=== PATIENT | female | born 1985 | race Two or more races ===

== ENCOUNTER 2020-07-16 12:14 | Outpatient (CLI) | payer OTHER ==
[2020-07-16] MEDS ORDERED: BETAMET ACET/BETAMET NA INJ 6 MG/1 ML IM ONE (12:17)
[2020-07-16] MEDS ORDERED: BETAMET ACET/BETAMET NA INJ 6 MG/1 ML ONE (12:19)
== END 2020-07-16 12:30 | disposition home or self-care (01) ==
LOC: LC 12:14
PROVIDERS: ATTEND Student in an Organized Health Care Education/Training Program
DX: O09.523 Supervision of elderly multigravida, third trimester (principal); Z3A.36 36 weeks gestation of pregnancy; Z88.1 Allergy status to other antibiotic agents
CPT/HCPCS: 59025; 96372; J0702

== ENCOUNTER 2020-07-17 13:12 | Outpatient (CLI) | payer OTHER ==
[2020-07-17] MEDS ORDERED: BETAMET ACET/BETAMET NA INJ 6 MG/1 ML ONE (13:15)
[2020-07-17] MEDS ORDERED: BETAMET ACET/BETAMET NA INJ 6 MG/1 ML IM PRN (13:17)
== END 2020-07-17 13:27 | disposition home or self-care (01) ==
LOC: LC 13:12
PROVIDERS: ATTEND Obstetrics & Gynecology Gynecology
DX: O09.523 Supervision of elderly multigravida, third trimester (principal); Z3A.36 36 weeks gestation of pregnancy; Z88.1 Allergy status to other antibiotic agents
CPT/HCPCS: 59025; 96372; J0702

== ENCOUNTER 2020-07-22 17:25 | Inpatient (IN) | payer OTHER ==
[2020-07-22] MEDS ORDERED: ZOLPIDEM TARTRATE 5 MG TABLET PO PRN (17:34)
[2020-07-22] MEDS ORDERED: DINOPROSTONE 10 MG VAGINAL INSERT.SR PV ONE (17:34)
[2020-07-22] MEDS ORDERED: MAG HYDROX/AL HYDROX/SIMETH SUSP 30 ML UDCUP PO PRN (17:34)
[2020-07-22] MEDS ORDERED: RINGERS SOLUTION,LACTATED 1,000 ML IV PRN (17:34)
[2020-07-22] MEDS ORDERED: RINGERS SOLUTION,LACTATED 300 ML IV ONE (17:34)
[2020-07-22] MEDS ORDERED: ACETAMINOPHEN 325 MG TABLET PO PRN (17:34)
[2020-07-22 18:17] LABS: ABSOLUTE BASOPHILS # (AUTO) 0.1 10^3/uL (0.0-0.2); ABSOLUTE EOSINOPHILS # (AUTO) 0.1 10^3/uL (0.0-0.6); ABSOLUTE LYMPHOCYTES (AUTO) 1.4 10^3/uL (0.5-4.7); ABSOLUTE MONOCYTES (AUTO) 0.6 10^3/uL (0.1-1.4); ABSOLUTE NEUT (AUTO) 6.6 10^3/uL (1.7-8.2); BASOPHILS % (AUTO) 1.4 % (0-2); EOSINOPHILS % (AUTO) 0.9 % (0-6); HEMATOCRIT 33.4 % (36.0-47.0); HEMOGLOBIN 11.4 g/dL (12.0-15.5); LYMPHOCYTES % (AUTO) 16.3 % (13-45); MEAN CORPUSCULAR HEMOGLOBIN 32.7 pg (27.0-33.4); MEAN CORPUSCULAR HGB CONC 34.2 g/dL (32.0-36.0); MEAN CORPUSCULAR VOLUME 96 fl (80-97); MONOCYTES % (AUTO) 6.9 % (3-13); PLATELET COUNT 250 10^3/uL (150-450); RED BLOOD COUNT 3.49 10^6/uL (3.72-5.28); RED CELL DISTRIBUTION WIDTH 14.2 % (11.5-14.0); SEGMENTED NEUTROPHILS % (AUTO) 74.5 % (42-78); TOTAL CELLS COUNTED % (AUTO) 100 %; WHITE BLOOD COUNT 8.8 10^3/uL (4.0-10.5)
[2020-07-22 18:20] LABS: APPEARANCE,URINE CLOUDY; BILIRUBIN,URINE NEGATIVE (NEGATIVE); GLUCOSE, URINE NEGATIVE (NEGATIVE); KETONES,URINE NEGATIVE (NEGATIVE); LEUKOCYTE ESTERASE,URINE MODERATE (NEGATIVE); NITRITE,URINE NEGATIVE (NEGATIVE); PROTEIN,URINE 30 mg/dL (NEGATIVE); URINE SPECIFIC GRAVITY 1.023
[2020-07-22 18:23] LABS: COLOR,URINE YELLOW
[2020-07-22 18:39] LABS: URINE AMPHETAMINES SCREEN NEGATIVE; URINE BARBITURATES SCREEN NEGATIVE; URINE BENZODIAZEPINES SCREEN NEGATIVE; URINE COCAINE SCREEN NEGATIVE; URINE MARIJUANA (THC) SCREEN NEGATIVE; URINE METHADONE SCREEN NEGATIVE; URINE PHENCYCLIDINE SCREEN NEGATIVE
[2020-07-22] MEDS ORDERED: DINOPROSTONE 10 MG VAGINAL INSERT.SR ONE (18:40)
[2020-07-22] MEDS ORDERED: URSODIOL 300 MG CAPSULE ONE (18:49)
[2020-07-22] MEDS: URSODIOL 300 MG CAPSULE PO SCH (19:09)
--- NOTE | 2020-07-23 07:10 | Admission Physical ---
Datetime Report Generated by CPN: 07/23/2020 07:10 CURRENT ADMISSION Chief Complaint: Scheduled Induction of Labor Indication for Induction: Other Indication for Induction- Other: Cholestasis of . Bile Acids of 53 Admit Impression : , Intrauterine ; Induction of Labor Admit Plan: Admit to Unit; Initiate Labor Induction Protocol ALLERGIES Medication Allergies: Yes Medication Allergies: amoxicillin (07/22/2020) Latex: No Latex Allergies OBSTETRICAL HISTORY EDC: 08/17/2020 00:00 : 5 Para: 3 Term: 0 : 3 SAB: 0 IAB: 1 Ectopic: 0 Livin Cesareans: 0 VBACs: 0 Multiple Births: 0 Gestational Diabetes: No Rh Sensitization: No Incompetent Cervix: No ALIDA: No Infertility: No ART Treatment: No Uterine Anomaly: No IUGR: No Hx Previous C/S: No Macrosomia: No Hx Loss/Stillborn: No PIH: No Hx : No Placenta Previa/Abruption: No Depression/PP Depression: No PTL/PROM: Yes Post Hemorrhage: Yes Current Procedures: Ultrasound; NST Obstetrical History Comments: G1- 2000 36 week Boy Epidural Baby born with pnemonia NICU for 2 weeks G2- 2007 36 week Girl Epidural G3- 2009 36 week Boy Epidural - 2018 EAB SEE RECORDS Alcohol: No Marijuana : No Cocaine: No Other Illicit Drugs: No Cigarettes: Former Smoker. 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 Cholestasis during 2nd and 4th, anxiety and depression for deployments pt states she no longer takes medication for it. INFECTIOUS HISTORY Gonorrhea: No Genital Herpes: No Chlamydia: Yes Tuberculosis: No Syphilis: No Hepatitis: No HIV/AIDS Exposure: No Rash or Viral Illness: No HPV: No Infectious History Comments: Chlamydia 2008 PHYSICAL EXAM General: Normal HEENT: Normal Neurologic: Normal Thyroid: Normal Heart: Normal Lungs: Normal Breast: Normal Back: Normal Abdomen: Normal Genitourinary Exam: Normal Extremities: Normal DTRs: Normal Pelvic Type: Adequate Vital Signs: Reviewed; Within Normal Limits VAGINAL EXAM Dilatation: 1 Effacement: 25 Station: -3 MEMBRANES Pooling: Negative Membranes: Intact FETUS A EGA: 36.3 Monitoring: External US FHR- Baseline: 150 Variability: Moderate 6-25bpm Accelerations: 15X15 Decelerations: None FHR Category: Category I Estimated Weight (gm): 2800 Presentation: Vertex Admit Comment: induction for cholestasis. ACS protocol completed. PLANS FOR LABOR AND DELIVERY Labor and Delivery: None Pain Management: Epidural Feeding Preference: Breast Benefit of Breast Feed Discussed: Yes Circumcision: Yes INFORMED CONSENT Signature: with User ID: DoAnderson
[2020-07-23] MEDS ORDERED: VANCOMYCIN HCL INJ 1000 MG VIAL ONE (08:04)
[2020-07-23] MEDS ORDERED: MISOPROSTOL 0.2 MG TABLET ONE (08:04)
[2020-07-23] MEDS ORDERED: LIDOCAINE 1% INJ-PF (10 MG/ML) 30 ML SDV ONE (08:04)
[2020-07-23] MEDS ORDERED: OXYTOCIN 10 UNIT/ML VIAL ONE (08:04)
[2020-07-23] MEDS ORDERED: OXYTOCIN/0.9 % SODIUM CHLORIDE 30 UNIT/500 ML RTUINJ ONE (08:05)
[2020-07-23] MEDS ORDERED: OXYTOCIN/0.9 % SODIUM CHLORIDE 30 UNIT/500 ML RTUINJ IV PRN (08:13)
[2020-07-23] MEDS ORDERED: VANCOMYCIN HCL 1,000 MG in DEXTROSE 5%-WATER 250 ML IV SCH (08:45)
[2020-07-23] MEDS ORDERED: NALBUPHINE HCL INJ 10 MG/1 ML AMPULE ONE (09:27)
[2020-07-23] MEDS: URSODIOL 300 MG CAPSULE PO SCH ×3 (09:37→18:13)
[2020-07-23] MEDS ORDERED: NALBUPHINE HCL INJ 10 MG/1 ML AMPULE INJ ONE (10:15)
[2020-07-23 10:59] LABS: HEMOGLOBIN 11.9 g/dL (12.0-15.5); MEAN CORPUSCULAR HEMOGLOBIN 32.4 pg (27.0-33.4); MEAN CORPUSCULAR HGB CONC 33.8 g/dL (32.0-36.0); MEAN CORPUSCULAR VOLUME 96 fl (80-97); PLATELET COUNT 245 10^3/uL (150-450); RED BLOOD COUNT 3.66 10^6/uL (3.72-5.28); RED CELL DISTRIBUTION WIDTH 14.1 % (11.5-14.0); WHITE BLOOD COUNT 11.2 10^3/uL (4.0-10.5)
[2020-07-23 11:09] LABS: INTERNATIONAL RATION (INR) 0.79; PROTHROMBIN TIME 11.2 SEC (11.4-15.4)
[2020-07-23 11:10] LABS: PARTIAL THROMBOPLASTIN TIME 29.7 SEC (23.5-35.8)
[2020-07-23 11:21] LABS: ALKALINE PHOSPHATASE 242 U/L (38-126); ANION GAP 7 (5-19); ASPARTATE AMINO TRANSFERASE 42 U/L (14-36); BILIRUBIN,DIRECT 0.2 mg/dL (0.0-0.4); BILIRUBIN,TOTAL 0.6 mg/dL (0.2-1.3); BLOOD UREA NITROGEN 10 mg/dL (7-20); CALCIUM 9.6 mg/dL (8.4-10.2); CARBON DIOXIDE 21 mmol/L (22-30); CHLORIDE 105 mmol/L (98-107); GLUCOSE 101 mg/dL (75-110); POTASSIUM 4.3 mmol/L (3.6-5.0); TOTAL PROTEIN 6.2 g/dL (6.3-8.2); URIC ACID 5.5 mg/dL (2.5-7.0)
[2020-07-23] MEDS ORDERED: FENTANYL/BUPIVACAINE/NS/PF 300 MCG/150 ML RTUINJ EPI ONE (16:19)
[2020-07-23] MEDS ORDERED: EPHEDRINE SULFATE INJ 50 MG/1 ML AMPULE ONE (16:19)
[2020-07-23] MEDS ORDERED: ROPIVACAINE HCL 0.2% INJ/PF (2 MG/ML) 20 ML SDV ONE (16:20)
[2020-07-23] MEDS: VANCOMYCIN HCL 1,000 MG in DEXTROSE 5%-WATER 250 ML IV SCH (20:17)
[2020-07-24] MEDS ORDERED: OXYTOCIN/0.9 % SODIUM CHLORIDE 30 UNIT/500 ML RTUINJ ONE (04:34)
[2020-07-24] MEDS ORDERED: ACETAMINOPHEN 325 MG TABLET PO PRN (04:51)
[2020-07-24] MEDS ORDERED: ZOLPIDEM TARTRATE 5 MG TABLET PO PRN (04:51)
[2020-07-24] MEDS ORDERED: DIPHENHYDRAMINE HCL 25 MG CAPSULE PO PRN (04:51)
[2020-07-24] MEDS ORDERED: PROMETHAZINE HCL 25 MG TABLET PO PRN (04:51)
[2020-07-24] MEDS ORDERED: BENZOCAINE/MENTHOL AEROSOL SPRAY 56 ML TOP PRN (04:51)
[2020-07-24] MEDS ORDERED: MAGNESIUM HYDROXIDE SUSP 30 ML UDCUP PO PRN (04:51)
[2020-07-24] MEDS ORDERED: DIPH/PERTUSS(ACELL)/TETANUS VAC/PF 0.5 ML SYR (>=10YO) IM PRN (04:51)
[2020-07-24] MEDS ORDERED: PROMETHAZINE HCL 25 MG SUPP.RECT PR PRN (04:51)
[2020-07-24] MEDS ORDERED: GLYCERIN/WITCH HAZEL LEAF 1 EACH MED..WIPE TP PRN (04:51)
[2020-07-24] MEDS ORDERED: DIBUCAINE 1% OINTMENT 28 GM TP PRN (04:51)
[2020-07-24] MEDS ORDERED: PROMETHAZINE HCL INJ 25 MG/1 ML VIAL IV PRN (04:51)
[2020-07-24] MEDS ORDERED: MISOPROSTOL 0.2 MG TABLET PR PRN (04:51)
[2020-07-24] MEDS ORDERED: NA PHOS,M-B/NA PHOS,DI-BA (ADULT) 133 ML ENEMA PR PRN (04:51)
[2020-07-24] MEDS ORDERED: ACETAMINOPHEN WITH CODEINE #3 TABLET PO PRN ×2 (04:51)
[2020-07-24] MEDS ORDERED: PSEUDOEPHEDRINE HCL 30 MG TABLET PO PRN (04:51)
[2020-07-24] MEDS ORDERED: MEASLES,MUMPS&RUBELLA VACC/PF 0.5 ML VIAL SUBCUT PRN (04:51)
[2020-07-24] MEDS ORDERED: OXYTOCIN/0.9 % SODIUM CHLORIDE 30 UNIT/500 ML RTUINJ IV PRN (04:51)
[2020-07-24] MEDS: VANCOMYCIN HCL 1,000 MG in DEXTROSE 5%-WATER 250 ML IV SCH (05:31)
[2020-07-24] MEDS ORDERED: IBUPROFEN 800 MG TABLET ONE (06:31)
--- NOTE | 2020-07-24 06:37 | Birth Certificate Data ---
Cert Data Datetime Report Generated by CPN: 07/24/2020 06:36 CERTIFICATE DATA Delivery Provider: Ana Maria Blackwell MD (07/17/2020 13:10:Bethanie Judge RN) 47a. Care: No (07/17/2020 13:10:Margo Mcdaniel RN) 47b. Date of First Visit: 04/19/2020 00:00 (07/17/2020 13:10:Margo Mcdaniel RN) 47c. Date of Last Visit: 07/19/2020 00:00 (07/17/2020 13:10:Margo Mcdaniel RN) 47d. Number of Visits: 10 (07/17/2020 13:10:Margo Mcdaniel RN) 48a. Number of Prev Live Births: 3 (07/17/2020 13:10:Margo Mcdaniel RN) 48b. Now Livin (07/17/2020 13:10:Margo Mcdaniel RN) 48c. Live Births Now : 0 (07/17/2020 13:10:QS system process) 48d. Date of Last Live : 01/13/2010 00:00 (Annotations: Data stored by Sammy on behalf of user) (07/17/2020 13:10:Margo Mcdaniel RN) 48e. Losses: 1 (07/17/2020 13:10:Margo Mcdaniel RN) 48f. Date of Last Preg Loss: 10/25/2018 00:00 (07/17/2020 13:10:Margo Mcdaniel RN) RISK FACTORS IN THIS 49a. Diabetes: No (07/17/2020 13:10:Margo Mcdaniel RN) 49b. Hypertension: No (07/17/2020 13:10:Margo Mcdaniel RN) 49c. Previous Births: 3 (07/17/2020 13:10:Margo Mcdaniel RN) 49d. Stillborns: No (07/17/2020 13:10:Margo Mcdaniel RN) 49d. IUGR: No (07/17/2020 13:10:Margo Mcdaniel RN) 49e. Infertility Treatment: No (07/17/2020 13:10:Margo Mcdaniel RN) 49f. Previous Cesareans: 0 (07/17/2020 13:10:Margo Mcdaniel RN) Mother's Height 50b. Height Inches: 61 (07/24/2020 04:43:QS system process) Mother's Weight 51a. Pre- Weight (lbs): 162 (07/17/2020 13:10:Margo Mcdaniel RN) 51b. Weight at Delivery (lbs): 185 (07/24/2020 04:43:QS system process) Infections Present/Treated 53a. Gonorrhea: No (07/17/2020 13:10:Margo Mcdaniel RN) Results this Hospital Visit : Negative (07/17/2020 13:10:Margo Mcdaniel RN) 53b. Syphilis: No (07/17/2020 13:10:Margo Mcdaniel RN) Results this Hospital Visit: NONREACTIVE (07/22/2020 17:57:QS system process) 53c. Chlamydia: Yes (07/17/2020 13:10:Margo Mcdaniel RN) Results this Hospital Visit: Negative (07/17/2020 13:10:Margo Mcdaniel RN) 53d. Hepatitis B: No (07/17/2020 13:10:Margo Mcdaniel RN) Results this Hospital Visit: Negative (07/17/2020 13:10:Margo Mcdaniel RN) 53e. Hepatitis C: Negative (07/17/2020 13:10:Janet Marie RN) 53h. Mother Tested for HBsAG: Yes (07/17/2020 13:10:Margo Mcdaniel RN) 53i. Date Tested: 04/19/2020 00:00 (07/17/2020 13:10:Margo Mcdaniel RN) 53j. Test Result: Negative (07/17/2020 13:10:Margo Mcdaniel RN) Obstetric Procedures 54a, b, c. Obstetric Procedures: Ultrasound; NST (07/17/2020 13:10:Margo Mcdaniel RN) Cigarette Smoking Cigarette Smoking: Former Smoker. [id number] (07/17/2020 13:10:Margo Mcdaniel RN) 55a. 3 Months Before Preg - Ci (07/17/2020 13:10:Margo Mcdaniel RN) 55a. Packs: 0 (07/17/2020 13:10:Margo Mcdaniel RN) 55b. 1st Trimester of Preg- Ci (07/17/2020 13:10:Margo Mcdaniel RN) 55b. Packs: 0 (07/17/2020 13:10:Margo Mcdaniel RN) 55c. 2nd Trimester of Preg- Ci (07/17/2020 13:10:Margo Mcdaniel RN) 55c. Packs: 0 (07/17/2020 13:10:Margo Mcdaniel RN) 55d. 3rd Trimester of Preg- Ci (07/17/2020 13:10:Margo Mcdaniel RN) 55d. Packs: 0 (07/17/2020 13:10:Margo Mcdaniel RN) Onset of Labor 56a. PROM >12 Hrs: 10.72 (07/17/2020 13:10:QS system process) 56b. Precipitous Labor <3 Hrs: 10 (07/17/2020 13:10:QS system process) 56c. Prolonged Labor > 20 Hrs: 10 (07/17/2020 13:10:QS system process) 57a. Induction of Labor: Induction (07/17/2020 13:10:Rose Lal RN) 57a. Induction of Labor: Cervidil (07/22/2020 18:50:Margo Mcdaniel RN) 57c. Non-Vertex Presentation A: Vertex (07/17/2020 13:10:Bethanie Judge RN) 57d. Steroids - Lung Mat: Full Course (07/17/2020 13:10:Lana Penaloza RN) 57d. Steroids - Lung Mat: Celestone 12mg IM - Dose 2 (Annotations: IM injection in right gluteus ish, bandaid applied. pt has no complaints) (07/17/2020 13:19:Silva Jeronimo RN) 57d. Steroids - Lung Mat: Indication (07/17/2020 13:10:Lana Penaloza RN) 57e. Antibiotics During Labor: Vancomycin (07/17/2020 13:10:Ana Maria Blackwell MD ([facility])) 57e. Antibiotics During Labor: 07/23/2020 20:17 (07/17/2020 13:10:Lana Penaloza RN) 57g. Moderate/Heavy Meconium: Clear (07/23/2020 17:54:oRse Lal RN) 57h. Intolerance of Labor: N/A (07/17/2020 13:10:Bethanie Judge RN) : N/A (07/17/2020 13:10:Bethanie Judge RN) 57i. Epidural/Spinal Anesthesia: Epidural (07/17/2020 13:10:Rose Lal RN) Method of Delivery 58a. Forceps - Unsuccessful A: N/A (07/17/2020 13:10:Bethanie Ring, RN) 58b. Vacuum - Unsuccessful A: N/A (07/17/2020 13:10:Bethanie Ring, RN) 58c. Presentation at 58c. Presentation at - A : Vertex (07/17/2020 13:10:Bethanie Judge, RN) 58c. Presentation at - A : N/A (07/17/2020 13:10:Bethanie Ring, RN) 58c. Presentation at - A : Cephalic (07/24/2020 03:12:Bethanie Judge, RN) Final Route and Method of Del 58d. Baby A Route/Delivery: Vaginal (07/17/2020 13:10:Bethanie Judge RN) 58e. Trial of Labor Attempted: No (07/17/2020 13:10:Rose Lla RN) 58e. Trial of Labor Attempted A: N/A (07/17/2020 13:10:Rose Lal RN) 58e. Trial of Labor Attempted B: N/A (07/17/2020 13:10:Rose Lal RN) Maternal Morbidity 59b. 3rd or 4th Degree Lacs: None (07/17/2020 13:10:Ana Maria Blackwell MD ([facility])) Birthweight Baby A: 2620 (07/17/2020 13:10:Bethanie Judge RN) 60a. Pounds : 5 (07/17/2020 13:10:QS system process) 60b. Ounces: 12 (07/17/2020 13:10:QS system process) 61. GA at Delivery Baby A: 36.4 (07/17/2020 13:10:Bethanie Ring, RN) : Late - 34- 36.6 Weeks (07/17/2020 13:10:QS system process) 62a. 5 Minute Baby A: 9 (07/17/2020 13:10:QS system process)
--- NOTE | 2020-07-24 06:37 | Warning Signs in Babies ---
VOD Warning Signs Datetime Report Generated by [facility]: 07/24/2020 06:36 VOD#608 -Warning Signs in Babies: Needs to be viewed. (07/17/2020 13:10:Bethanie Judge RN)
--- NOTE | 2020-07-24 06:37 | Delivery Summary ---
Del Sum A-C Datetime Report Generated by CPN: 07/24/2020 06:36 DELIVERY PERSONNEL DELIVERY PERSONNEL: [id number] Delivery Doctor:: Ana Maria Blackwell MD BALLOON TESTER:: Charlie Weber CRNA Labor and Delivery Nurse:: Bethanie Judge RNfuels sales representative Nurse:: Lana Penaloza RN Nursery Nurse:: Lakisha Riddle RN Nursery Nurse:: luli Castelan RN Watch Dial Maker/MULE SPINNER: Dona Lugo, [employer]IEUTENANT MATERNAL INFORMATION Delivery Anesthesia: Epidural Medications After Delivery: Pitocin 30 Units in 500ml NS/D5W; Cytotec 1000mcg Per Rectum/Vagina Estimated Blood Loss (ml): 100 Maternal Complications: None Other Maternal Complications: Cholestasis of Provider Comments: VMI delivered in BAL presentation. No nuchal cord. Shoulders and body delivered without difficulty. cord doubly clamped and cut and infant to maternal abdomen for NRP. Placenta delivered intact spontaneously. FF at U with intermittent atony. Cytotec 1000mcg per rectum given. No perineal lacerations. Mother and baby stable upon provider leaving the room. LABOR SUMMARY EDC: 08/17/2020 00:00 No. Babies in Womb: 1 Attempted: No Labor Anesthesia: Epidural LABOR INFORMATION Reason for Induction: Other Reason for Induction- Other: cholestasis Onset of Labor: 07/23/2020 17:54 Complete Dilatation: 07/24/2020 03:12 Cervical Ripening Agents: Cervidil Oxytocin: Induction Group B Beta Strep: negative Antibiotics # of Doses: 2 Antibiotics Time of Last Dose: 07/23/2020 20:17 Name of Antibiotic Given: vanc Steroids Given: Full Course Reason Steroids Not Administered: Indication MEMBRANES Membranes Rupture Method: Artificial Rupture of Membranes: 07/23/2020 17:54 Length of Rupture (hr): 10.72 Amniotic Fluid Color: Clear Amniotic Fluid Amount: Moderate Amniotic Fluid Odor: None STAGES OF LABOR Stage 1 hr: 9 Stage 1 min: 18 Stage 2 hr: 1 Stage 2 min: 25 Stage 3 hr: 0 Stage 3 min: 4 Total Time in Labor hr: 10 Total Time in Labor min: 47 VAGINAL DELIVERY Episiotomy: None Laceration #1: None Laceration Extension #1: N/A Laceration Repair: Yes Sponge Count Correct: Yes Sharps Count Correct: Yes CSECTION DELIVERY Primary Indication: N/A Secondary Indication: N/A CSection Incidence: N/A Labor: N/A Elective: N/A CSection Incision: N/A BABY A INFORMATION Delivery Date/Time: 07/24/2020 04:37 Method of Delivery: Vaginal Nurse Controlled Delivery: No Born in Route : No : N/A Forceps: N/A Vacuum Extraction: N/A Shoulder Dystocia : No PRESENTATION/POSITION BABY A Presentation: Cephalic Cephalic Presentation: Vertex Vertex Position: Right Occipital Anterior Breech Presentation: N/A PLACENTA INFORMATION BABY A Placenta Delivery Time : 07/24/2020 04:41 Placenta Method of Delivery: Spontaneous Placenta Status: Delivered SCORES BABY A Heart Rate 1 min: >100 bpm Resp Effort 1 min: Good Cry Reflex Irritability 1 min: Cough or Sneeze or Pulls Away Muscle Tone 1 min: Active Motion Color 1 min: Body [place], Extremities Blue Resuscitation Effort 1 min: Tactile Stimulation SCORE 1 MIN: 9 Heart Rate 5 min: >100 bpm Resp Effort 5 min: Good Cry Reflex Irritability 5 min: Cough or Sneeze or Pulls Away Muscle Tone 5 min: Active Motion Color 5 min: Body [place], Extremities Blue Resuscitation Effort 5 min: Tactile Stimulation SCORE 5 MIN: 9 INFORMATION BABY A Gestational Age at Delivery: 36.4 Gestational Status: Late - 34- 36.6 Weeks Infant Outcome : Liveborn Condition : Stable Infant Sex: Male IDENTIFICATION BABY A Verification Date/Time: 07/24/2020 05:15 ID Band Number: [id number] Mother's Name Verified: Yes Infant RN Verifying : Inocente Penaloza, RN Additional Verifying Personnel: B. Ring, RN WEIGHT/LENGTH BABY A Infant Birthweight (gm): 2620 Infant Weight (lb): 5 Infant Weight (oz): 12 Infant Length (in): 19.00 Length (cm): 48.26 CORD INFORMATION BABY A No. Cord Vessels: 3 Nuchal Cord : N/A Cord Blood Taken: Yes-For Eval (Mom's Blood Type - or O+) Suction: Mouth; Nose ASSESSMENT BABY A Complications: Decreased Variability Physical Findings at Delivery: Molding of the Head Physical Findings- Other: See full nursery manager group home Infant Respirations: Appears Normal Skin to Skin: Yes Skin to Skin Time (min): 30 Feather Drying Machine Operator/ALS Called : No Care By: Ramiro Palmer RN _ Eriberto Riddle RN Transferred To: Remains with Mother BABY B INFORMATION : N/A SIGNATURES Signature: with User ID: Brent
[2020-07-24] MEDS: IBUPROFEN 800 MG TABLET PO SCH ×3 (06:43→21:50)
--- NOTE | 2020-07-24 08:54 | PDOC PROGRESS REPORT ---
Subjective-OB Progress Note for:: 07/24/20 Subjective: Pt doing well, no concerns. She reports light bleeding, reg diet and voiding w/o difficulty. Physical Exam (OB) Vital Signs: Temp Pulse Resp BP Pulse Ox 99.0 F 87 18 108/56 L 98 07/24/20 07:11 07/24/20 07:11 07/24/20 07:11 07/24/20 07:11 07/24/20 07:11 Intake & Output 07/23/20 07/24/20 07/25/20 06:59 06:59 06:59 Intake Total 250 Balance 250 Weight 83.7 kg - PIH/Pre-Eclampsia Clonus: Negative Headache: Absent Epigastric Pain: No Visual Changes: No - Maternal Morbidity 59. Maternal Morbidity (serious complications experinced by the mother associated with labor and delivery: None of the above - Lochia Lochia Amount: Small 10-25 ml Lochia Color: Rubra/Red - Abdomen Description: Soft Hernia Present: No Fundal Description: Firm, Midline Fundal Height: u/u - u/2 Objective-Diagnostic Laboratory: 07/23/20 10:40 07/23/20 10:40 07/23/20 07/23/20 10:40 10:40 WBC 11.2 H RBC 3.66 L Hgb 11.9 L Hct 35.0 L MCV 96 MCH 32.4 MCHC 33.8 RDW 14.1 H Plt Count 245 Sodium 132.5 L Potassium 4.3 Chloride 105 Carbon Dioxide 21 L Anion Gap 7 BUN 10 Creatinine 0.72 Est GFR ( Amer) > 60 Glucose 101 Uric Acid 5.5 Calcium 9.6 Total Bilirubin 0.6 AST 42 H Alkaline Phosphatase 242 H Total Protein 6.2 L Albumin 3.0 L Assessment and Plan(PN) - Assessment and Plan (1) Cholestasis during Qualifiers: Trimester: third trimester Qualified Code(s): O26.613 - Liver and biliary tract disorders in , third trimester; K83.1 - Obstruction of bile duct Is this a current diagnosis for this admission?: Yes (2) Group B streptococcal infection in child of prior , currently Qualifiers: Trimester: third trimester Qualified Code(s): O09.293 - Supervision of with other poor reproductive or obstetric history, third trimester Is this a current diagnosis for this admission?: Yes (3) Vaginal delivery Is this a current diagnosis for this admission?: Yes - Time Spent with Patient Time with patient: Less than 15 minutes Medications reviewed and adjusted accordingly: Yes - Disposition Anticipated Discharge Disposition: Home, Self Care Anticipated Discharge Timeframe: within 48 hours
[2020-07-24] MEDS: DOCUSATE SODIUM 100 MG CAPSULE PO SCH ×2 (11:01→18:11)
[2020-07-24] MEDS: URSODIOL 300 MG CAPSULE PO SCH ×3 (11:02→18:11)
[2020-07-24] MEDS: FERROUS SULFATE 325 MG TABLET PO SCH ×2 (11:02→18:11)
[2020-07-24] MEDS: PRENATAL VITAMIN W DHA CAPSULE PO SCH (11:02)
[2020-07-24] MEDS: FAMOTIDINE 20 MG TABLET PO SCH ×2 (11:02→21:51)
[2020-07-24] MEDS: SENNOSIDES/DOCUSATE 8.6-50 MG 1 EACH TABLET PO SCH (11:03)
[2020-07-25] MEDS: IBUPROFEN 800 MG TABLET PO SCH ×3 (05:56→22:24)
[2020-07-25 07:21] LABS: HEMATOCRIT 32.7 % (36.0-47.0); MEAN CORPUSCULAR HEMOGLOBIN 32.9 pg (27.0-33.4); MEAN CORPUSCULAR HGB CONC 33.6 g/dL (32.0-36.0); MEAN CORPUSCULAR VOLUME 98 fl (80-97); PLATELET COUNT 233 10^3/uL (150-450); RED BLOOD COUNT 3.33 10^6/uL (3.72-5.28); RED CELL DISTRIBUTION WIDTH 14.8 % (11.5-14.0); WHITE BLOOD COUNT 11.2 10^3/uL (4.0-10.5)
[2020-07-25] MEDS: PRENATAL VITAMIN W DHA CAPSULE PO SCH (10:53)
[2020-07-25] MEDS: FAMOTIDINE 20 MG TABLET PO SCH ×2 (10:53→22:24)
[2020-07-25] MEDS: URSODIOL 300 MG CAPSULE PO SCH ×3 (10:53→17:20)
[2020-07-25] MEDS: DOCUSATE SODIUM 100 MG CAPSULE PO SCH ×2 (10:53→17:19)
[2020-07-25] MEDS: SENNOSIDES/DOCUSATE 8.6-50 MG 1 EACH TABLET PO SCH (10:53)
[2020-07-25] MEDS: FERROUS SULFATE 325 MG TABLET PO SCH ×2 (10:53→17:19)
--- NOTE | 2020-07-25 12:26 | PDOC PROGRESS REPORT ---
Subjective-OB Progress Note for:: 07/25/20 Subjective: Pt doing well, no concerns. She reports light bleeding, reg diet and voiding w/o difficulty Physical Exam (OB) Vital Signs: Temp Pulse Resp BP Pulse Ox 97.4 F 74 18 107/63 97 07/25/20 07:56 07/25/20 07:37 07/25/20 07:37 07/25/20 07:37 07/25/20 07:37 Intake & Output 07/24/20 07/25/20 07/26/20 06:59 06:59 06:59 Intake Total 250 Balance 250 - PIH/Pre-Eclampsia DTR's: 2 + Clonus: Negative Headache: Absent Epigastric Pain: No Visual Changes: No - Maternal Morbidity 59. Maternal Morbidity (serious complications experinced by the mother associated with labor and delivery: None of the above - Lochia Lochia Amount: Scant < 10 ml Lochia Color: Rubra/Red - Abdomen Description: Soft, Round Hernia Present: No Fundal Description: Firm, Midline Fundal Height: u/u - u/2 Objective-Diagnostic Laboratory: 07/25/20 06:42 07/23/20 10:40 07/25/20 06:42 WBC 11.2 H RBC 3.33 L Hgb 11.0 L Hct 32.7 L MCV 98 H MCH 32.9 MCHC 33.6 RDW 14.8 H Plt Count 233 Assessment and Plan(PN) - Assessment and Plan (1) Cholestasis during Qualifiers: Trimester: third trimester Qualified Code(s): O26.613 - Liver and biliary tract disorders in , third trimester; K83.1 - Obstruction of bile duct Is this a current diagnosis for this admission?: Yes (2) Group B streptococcal infection in child of prior , currently Qualifiers: Trimester: third trimester Qualified Code(s): O09.293 - Supervision of with other poor reproductive or obstetric history, third trimester Is this a current diagnosis for this admission?: Yes (3) Vaginal delivery Is this a current diagnosis for this admission?: Yes - Time Spent with Patient Time with patient: Less than 15 minutes Medications reviewed and adjusted accordingly: Yes - Disposition Anticipated Discharge Disposition: Home, Self Care Anticipated Discharge Timeframe: within 24 hours
[2020-07-26] MEDS: IBUPROFEN 800 MG TABLET PO SCH (05:09)
[2020-07-26] MEDS: DOCUSATE SODIUM 100 MG CAPSULE PO SCH (09:50)
[2020-07-26] MEDS: PRENATAL VITAMIN W DHA CAPSULE PO SCH (09:51)
[2020-07-26] MEDS: URSODIOL 300 MG CAPSULE PO SCH (09:52)
[2020-07-26] MEDS: FERROUS SULFATE 325 MG TABLET PO SCH (09:53)
[2020-07-26] MEDS: FAMOTIDINE 20 MG TABLET PO SCH (09:53)
[2020-07-26] MEDS: SENNOSIDES/DOCUSATE 8.6-50 MG 1 EACH TABLET PO SCH (09:53)
--- NOTE | 2020-07-26 10:28 | PDOC DISCHARGE SUMMARY ---
Impression - Admit/DC Date/PCP Admission Date/Primary Care Provider: 07/22/20 17:25 SHARMAINE YANEZ MD Discharge Date: 07/26/20 - PP Day #2, doing well, pt running low normal baseline BP, states occassional lightheadedness w/ up to void. O+. rubella +, - Discharge Diagnosis (1) 36 weeks gestation of Is this a current diagnosis for this admission?: Yes (2) Normal course Is this a current diagnosis for this admission?: Yes (3) Cholestasis during Is this a current diagnosis for this admission?: Yes (4) Group B streptococcal infection in child of prior , currently Is this a current diagnosis for this admission?: Yes (5) Vaginal delivery Is this a current diagnosis for this admission?: Yes - Additional Information Resuscitation Status: Full Code Discharge Diet: As Tolerated Discharge Activity: Activity As Tolerated Referrals: SHARMAINE YANEZ MD [Primary Care Provider] - Prescriptions: Ibuprofen [Motrin 800 mg Tablet] 800 mg PO Q8 #60 tablet Home Medications: Vit No.130/Iron/Folic [ Tablet] 1 each PO DAILY 07/17/20 Ibuprofen [Motrin 800 mg Tablet] 800 mg PO Q8 #60 tablet 07/26/20 HPI Reason(s) for Admission: Onset of Labor Procedures: Ultrasound Intrapartum Procedure(s): Spontaneous Vaginal Delivery Hospital Course 59. Maternal Morbidity (serious complications experinced by the mother associated with labor and delivery: None of the above Results Laboratory Results: WBC 11.2 10^3/uL (4.0-10.5) H 07/25/20 06:42 RBC 3.33 10^6/uL (3.72-5.28) L 07/25/20 06:42 Hgb 11.0 g/dL (12.0-15.5) L 07/25/20 06:42 Hct 32.7 % (36.0-47.0) L 07/25/20 06:42 MCV 98 fl (80-97) H 07/25/20 06:42 MCH 32.9 pg (27.0-33.4) 07/25/20 06:42 MCHC 33.6 g/dL (32.0-36.0) 07/25/20 06:42 RDW 14.8 % (11.5-14.0) H 07/25/20 06:42 Plt Count 233 10^3/uL (150-450) 07/25/20 06:42 Lymph % (Auto) 16.3 % (13-45) 07/22/20 17:57 Piatt % (Auto) 6.9 % (3-13) 07/22/20 17:57 Eos % (Auto) 0.9 % (0-6) 07/22/20 17:57 Baso % (Auto) 1.4 % (0-2) 07/22/20 17:57 Absolute Neuts (auto) 6.6 10^3/uL (1.7-8.2) 07/22/20 17:57 Absolute Lymphs (auto) 1.4 10^3/uL (0.5-4.7) 07/22/20 17:57 Absolute Monos (auto) 0.6 10^3/uL (0.1-1.4) 07/22/20 17:57 Absolute Eos (auto) 0.1 10^3/uL (0.0-0.6) 07/22/20 17:57 Absolute Basos (auto) 0.1 10^3/uL (0.0-0.2) 07/22/20 17:57 Seg Neutrophils % 74.5 % (42-78) 07/22/20 17:57 PT 11.2 SEC (11.4-15.4) L 07/23/20 10:40 INR 0.79 07/23/20 10:40 APTT 29.7 SEC (23.5-35.8) 07/23/20 10:40 Sodium 132.5 mmol/L (137-145) L 07/23/20 10:40 Potassium 4.3 mmol/L (3.6-5.0) 07/23/20 10:40 Chloride 105 mmol/L (98-107) 07/23/20 10:40 Carbon Dioxide 21 mmol/L (22-30) L 07/23/20 10:40 Anion Gap 7 (5-19) 07/23/20 10:40 BUN 10 mg/dL (7-20) 07/23/20 10:40 Creatinine 0.72 mg/dL (0.52-1.25) 07/23/20 10:40 Est GFR ( Amer) > 60 (>60) 07/23/20 10:40 Est GFR (MDRD) Non-Af > 60 (>60) 07/23/20 10:40 Glucose 101 mg/dL (75-110) 07/23/20 10:40 Uric Acid 5.5 mg/dL (2.5-7.0) 07/23/20 10:40 Calcium 9.6 mg/dL (8.4-10.2) 07/23/20 10:40 Total Bilirubin 0.6 mg/dL (0.2-1.3) 07/23/20 10:40 Direct Bilirubin 0.2 mg/dL (0.0-0.4) 07/23/20 10:40 Neonat Total Bilirubin Not Reportable 07/23/20 10:40 Neonat Direct Bilirubin Not Reportable 07/23/20 10:40 Neonat Indirect Bili Not Reportable 07/23/20 10:40 AST 42 U/L (14-36) H 07/23/20 10:40 ALT 58 U/L (<35) H 07/23/20 10:40 Alkaline Phosphatase 242 U/L (38-126) H 07/23/20 10:40 Lactate Dehydrogenase 179 U/L (120-246) 07/23/20 10:40 Total Protein 6.2 g/dL (6.3-8.2) L 07/23/20 10:40 Albumin 3.0 g/dL (3.5-5.0) L 07/23/20 10:40 Urine Color YELLOW 07/22/20 17:31 Urine Appearance CLOUDY 07/22/20 17:31 Urine pH 6.0 (5.0-9.0) 07/22/20 17:31 Ur Specific [place] 1.023 07/22/20 17:31 Urine Protein 30 mg/dL (NEGATIVE) H 07/22/20 17:31 Urine Glucose (UA) NEGATIVE mg/dL (NEGATIVE) 07/22/20 17: Urine Ketones NEGATIVE mg/dL (NEGATIVE) 07/22/20 17:31 Urine Blood NEGATIVE (NEGATIVE) 07/22/20 17:31 Urine Nitrite NEGATIVE (NEGATIVE) 07/22/20 17:31 Urine Bilirubin NEGATIVE (NEGATIVE) 07/22/20 17:31 Urine Urobilinogen 2.0 mg/dL (<2.0) H 07/22/20 17:31 Ur Leukocyte Esterase MODERATE (NEGATIVE) H 07/22/20 17:31 Urine Ascorbic Acid 40 (NEGATIVE) H 07/22/20 17:31 Urine Opiates Screen NEGATIVE 07/22/20 17:31 Urine Methadone Screen NEGATIVE 07/22/20 17:31 Ur Barbiturates Screen NEGATIVE 07/22/20 17:31 Ur Phencyclidine Scrn NEGATIVE 07/22/20 17:31 Ur Amphetamines Screen NEGATIVE 07/22/20 17:31 U Benzodiazepines Scrn NEGATIVE 07/22/20 17:31 Urine Cocaine Screen NEGATIVE 07/22/20 17:31 U Marijuana (THC) Screen NEGATIVE 07/22/20 17:31 RPR NONREACTIVE (NONREACTIVE) 07/22/20 17:57 Blood Type O POSITIVE 07/22/20 17:57 Antibody Screen NEGATIVE 07/22/20 17:57 Plan Plan of Treatment: d/c home, f/up with [facility] in 4 wks for PP check up Time Spent: Less than 30 Minutes
[2020-07-26 13:08] VITALS: BP 92/58
== END 2020-07-26 13:27 | disposition home or self-care (01) | DRG 805 ==
LOC: LR 17:25 → 2S 07-24 06:57
PROVIDERS: ADMIT Obstetrics & Gynecology; ATTEND Obstetrics & Gynecology
PROC: 3E033VJ Introduction of Other Hormone into Peripheral Vein, Percutaneous Approach (ICD-10-PCS; 2020-07-23)
PROC: 10907ZC Drainage of Amniotic Fluid, Therapeutic from Products of Conception, Via Natural or Artificial Opening (ICD-10-PCS; 2020-07-23)
PROC: 10E0XZZ Delivery of Products of Conception, External Approach (ICD-10-PCS; principal; 2020-07-24)
DX: O26.62 Liver and biliary tract disorders in childbirth (principal); O60.14X0 Preterm labor third trimester with preterm delivery third trimester, not applicable or unspecified; Z37.0 Single live birth; K83.1 Obstruction of bile duct; O99.824 Streptococcus B carrier state complicating childbirth; Z88.0 Allergy status to penicillin; Z87.891 Personal history of nicotine dependence; Z3A.36 36 weeks gestation of pregnancy
CPT/HCPCS: 1967; 36415; 80053; 80307; 81005; 83615; 84550; 85025; 85027; 85610; 85730; 86592; 86850; 86900; 86901; 88307; J2300; J2590; J2795; J3010; J3370; J3490; J7060